=== PATIENT | female | born 1945 | race Caucasian/White ===

== ENCOUNTER → 2017-04-24 | Outpatient (CLI) | payer OTHER ==
[~2017-04-24] MED LIST: ACET-1311 PO; ALEN70TA3 PO; ALPR-411 PO; ASCA500 PO; ASPI81TA28 PO; ATOR-22 PO; BIOT50006 PO; BNC/20125 PO; CALC500C70 PO; CETI10TA84 PO; CHOL1000 PO; DICY10CA55 PO; DILT240C57 PO; ERGO500037 PO; ESTR0.3T PO; FENO145T26 PO; FERR1TAB13 PO; HYDR-4079 PO; MAXIDE PO; MELATAB2 PO; MULT-506 PO; NXM/40 PO; OXYC-57 PO; OXYC-739 PO; ST J1CAP PO; TRAM1TAB14 PO; VITA1TAB4 PO; lovaza PO
--- NOTE | 2017-04-24 14:59 | DIAGNOSTIC IMAGING REPORT ---
LEFT HIP 2 VIEWS CLINICAL HISTORY: Left hip and groin pain. FINDINGS: AP and frog-leg views of the left hip are obtained. No prior studies are available for comparison at the time of dictation. The skeletal structures are osteopenic. No fracture is seen in the left hip or the visualized left hemipelvis. 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 Moderate arthritic change is seen in the left hip with associated joint space narrowing. The overlying soft tissues are within normal limits. IMPRESSION: Osteopenia and arthritic change as above. No acute bony abnormality is identified in the left hip. Electronically signed by: Leon Donaldson M.D. 04/24/2017 2:58 PM Dictated Date/Time: 04/24/2017 2:57 PM
--- NOTE | 2017-04-24 15:08 | DIAGNOSTIC IMAGING REPORT ---
RIGHT HIP UNILATERAL 2 VIEWS CLINICAL HISTORY: B/L HIP AND GROIN PAIN Right pain COMPARISON: None. DISCUSSION: Mild degenerative narrowing right hip joint space. No evidence for acetabular protrusion. Mild peripheral osteophytic reaction at the level of the acetabulum. There is no evidence for soft tissue swelling. IMPRESSION: Mild/moderate degenerative change. No acute process. Electronically signed by: Nicholas Munguia M.D. 04/24/2017 3:06 PM Dictated Date/Time: 04/24/2017 3:06 PM
== END | disposition home or self-care (01) ==
LOC: C.RADBC 14:29
PROVIDERS: ATTEND Physician Assistant
DX: M25.552 Pain in left hip (principal); M25.551 Pain in right hip; R10.30 Lower abdominal pain, unspecified; M85.88 Other specified disorders of bone density and structure, other site; M16.0 Bilateral primary osteoarthritis of hip